=== PATIENT | male | born 1980 | race African-American/Black ===

== ENCOUNTER 2017-02-17 21:08 | Emergency (ER) | payer MEDICAID, OTHER ==
[2017-02-18] MEDS ORDERED: ONDANSETRON 4 MG TAB.RAPDIS PO ONE (01:14)
[2017-02-18] MEDS ORDERED: OXYCODONE-ACETAMINOPHEN 5-325 MG TABLET PO ONE (01:14)
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
[2017-02-18 02:47] VITALS: BP 129/74
== END 2017-02-18 02:48 | disposition home or self-care (01) ==
LOC: ER 21:08
DX: M54.2 Cervicalgia (principal); V49.40XA Driver injured in collision with unspecified motor vehicles in traffic accident, initial encounter; I10 Essential (primary) hypertension; J44.9 Chronic obstructive pulmonary disease, unspecified; F17.200 Nicotine dependence, unspecified, uncomplicated
CPT/HCPCS: 99283; 72050; S0119

== ENCOUNTER 2017-03-04 09:26 | Emergency (ER) | payer OTHER ==
[2017-03-04 09:47] VITALS: BP 151/88
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
== END 2017-03-04 10:25 | disposition home or self-care (01) ==
LOC: ER 09:26
DX: S16.1XXA Strain of muscle, fascia and tendon at neck level, initial encounter (principal); V49.40XA Driver injured in collision with unspecified motor vehicles in traffic accident, initial encounter; F17.200 Nicotine dependence, unspecified, uncomplicated; J44.9 Chronic obstructive pulmonary disease, unspecified; I10 Essential (primary) hypertension
CPT/HCPCS: 99283

== ENCOUNTER 2020-01-28 10:23 | Emergency (ER) | payer SELFPAY ==
[2020-01-28] MEDS ORDERED: TETRACAINE HCL 0.5% OPH SOLN 4 ML OD ONE (10:37)
--- NOTE | 2020-01-28 10:37 | ER Document Report ---
ED Medical Screen (RME) - General Chief Complaint: Foreign Body in Eye Stated Complaint: RIGHT EYE IRRITATION Time Seen by Provider: 01/28/20 10:35 Mode of Arrival: Ambulatory Information source: Patient Notes: 39-year-old male presented to ED for complaint of metal fragment in his right eye. He states he was cutting metal with a saw on when he got specks of metal in his eye. He states he has having a lot of pain in the right eye. He states he cannot see but he needs to get this treated. He is alert oriented respirations regular nonlabored speaking in full sentences. I have greeted and performed a rapid initial assessment of this patient. A comprehensive ED assessment and evaluation of the patient, analysis of test results and completion of medical decision making process will be conducted by an additional ED providers. TRAVEL OUTSIDE OF THE [place] IN LAST 30 DAYS: No - Related Data Allergies/Adverse Reactions: No Known Allergies Allergy (Verified 03/04/17 09:47) Past Medical History - Past Medical History Cardiac Medical History: Reports: Hx Hypertension Pulmonary Medical History: Reports: Hx COPD Renal/ Medical History: Denies: Hx Peritoneal Dialysis - Immunizations Hx Diphtheria, Pertussis, Tetanus Vaccination: Yes Physical Exam - Vital signs Vitals: Temp Pulse BP Pulse Ox 97.7 F 80 158/95 H 100 01/28/20 10:01/28/20 10:01/28/20 10:31 01/28/20 10:31 Course - Vital Signs Vital signs: Temp Pulse Resp BP Pulse Ox 97.7 F 80 158/95 H 100 01/28/20 10:31 01/28/20 10:31 01/28/20 10:31 01/28/20 10:31
[2020-01-28] MEDS ORDERED: ERYTHROMYCIN 0.5% OPH OINT 1 GM UNIT DOSE OS ONE (11:31)
[2020-01-28] MEDS ORDERED: KETOROLAC TROMETHAMINE 0.45% 4 DROP/0.4 ML DROPERETTE OS ONE (11:31)
[2020-01-28] MEDS ORDERED: HOMATROPINE HBR 5% OPH SOLN 5 ML OS ONE (11:32)
[2020-01-28 12:03] VITALS: BP 140/91
--- NOTE | 2020-01-28 12:09 | ER Document Report ---
Entered by PEG PEOPLES SCRIBE 01/28/20 1131 Acting as scribe for:CHELSEY MERRITT MD ED General - General Chief Complaint: Eye Injury Stated Complaint: RIGHT EYE IRRITATION Time Seen by Provider: 01/28/20 10:35 Mode of Arrival: Ambulatory Information source: Patient Notes: This 39-year-old male presents to the emergency department with right eye irritation that began three days ago. Patient [place] a metal fragment got under his protective glasses at 11:30 AM. Patient states that when he was taking off his protective glasses he felt the metal fragment fall into his right eye. Patient reports associated pain and redness of right eye. Patient said that he has rinsed his right eye with no relief. Patient denies fever and cough. TRAVEL OUTSIDE OF THE [place] IN LAST 30 DAYS: No - Related Data Allergies/Adverse Reactions: No Known Allergies Allergy (Verified 03/04/17 09:47) Past Medical History - General Information source: Patient - Social History Smoking Status: Current Every Day Smoker Cigarette use (# per day): Yes - 1 pack per day Chew tobacco use (# tins/day): No Frequency of alcohol use: None Drug Abuse: None Family History: Reviewed & Not Pertinent Patient has homicidal ideation: No - Past Medical History Cardiac Medical History: Reports: Hx Hypertension Pulmonary Medical History: Reports: Hx COPD Past Surgical History: Reports: Hx Inguinal Hernia - Left - Immunizations Hx Diphtheria, Pertussis, Tetanus Vaccination: Yes Review of Systems - Review of Systems Constitutional: See HPI. denies: Fever EENT: See HPI, Eye pain Cardiovascular: No symptoms reported Respiratory: See HPI. denies: Cough Gastrointestinal: No symptoms reported Genitourinary: No symptoms reported Male Genitourinary: No symptoms reported Musculoskeletal: No symptoms reported Skin: No symptoms reported Hematologic/Lymphatic: No symptoms reported Neurological/Psychological: No symptoms reported -: Yes All other systems reviewed and negative Physical Exam - Vital signs Vitals: Temp Pulse BP Pulse Ox 97.7 F 80 158/95 H 100 01/28/20 10:31 01/28/20 10:31 01/28/20 10:31 01/28/20 10:31 - Notes Notes: Physical Exam: General: Alert, appears well. HEENT: Atraumatic. PERRL. Extraocular movements intact. Oropharynx clear. Neck: Supple. Non-tender. Respiratory: No respiratory distress. Clear and equal breath sounds bilaterally. Cardiovascular: Regular rate and rhythm. Abdominal: Normal Inspection. Non-tender. No distension. Normal Bowel Sounds. Back: No gross abnormalities. Extremities: Moves all four extremities. Upper extremities: Normal inspection. Normal ROM. Lower extremities: Normal inspection. No edema. Normal ROM. Neurological: Normal cognition. AAOx4. Normal speech. Psychological: Normal affect. Normal Mood. Skin: Warm. Dry. Normal color. - General General appearance: Appears well In distress: None Notes: Visual acuity obtained by the nurse is right eye 20/20, left eye 20/15, both eyes 20/15. - HEENT Head: Normocephalic, Atraumatic Cornea: Embedded foreign body - The right cornea shows an embedded round metal foreign body in the medial aspect of the cornea. There is some injection of the sclera. There are no other irregularities of the corneal surface seen. Pupils: PERRL Visual acuity- Right eye: 20/20 Visual acuity- Left eye: 20/15 Visual acuity- Both eyes: 20/15 Corrective lenses worn: No Course - Re-evaluation Re-evalutation: 01/28/20 12:10 PROCEDURE: The right eye was anesthetized with tetracaine eyedrops. The metal corneal foreign body was removed with a 27-gauge needle. The metal broke apart and came out in multiple tiny pieces. There is a rust ring in the corneal tissue. Home atropine drops were placed in the right eye to facilitate dilatation. 2 Acular drops were placed in the right eye. Erythromycin ointment was placed in the right eye. - Vital Signs Vital signs: Temp Pulse Resp BP Pulse Ox 96.8 F L 60 18 140/91 H 97 01/28/20 11:58 01/28/20 11:58 01/28/20 11:58 01/28/20 11:58 01/28/20 11:58 Discharge - Discharge Clinical Impression: Corneal rust ring of right eye Corneal foreign body with residual material Qualifiers: Encounter type: initial encounter Laterality: right Qualified Code(s): T15.01XA - Foreign body in cornea, right eye, initial encounter Condition: Stable Disposition: HOME, SELF-CARE Additional Instructions: Corneal Foreign Body with Rust; You had a particle on the cornea of your eye. It's been removed, but your eye may be irritated until complete healing occurs. If a metal foreign body was imbedded in the eye, rust may develop in the cornea. If all the rust can't be removed at first, it can be removed at your follow-up visit. Following removal of a corneal foreign body, the usual treatment is to place antibiotics in the eye. If the eye is severely irritated, the pupil may be dilated to ease the pain. In addition, pain medication may be necessary. A follow-up visit is usually scheduled to assure healing. Do not drive or operate machinery until you have the full use of both your eyes. Healing of the area where the particle was embedded takes one to three days. If eye pain becomes severe, or if there is purulent drainage, eye swelling, or decreasing vision, call the doctor or return at once for re-evaluation. The metal was removed from your cornea today. There is rust in the cornea around where the metal was lodged. Put a small ribbon of the antibiotic ointment into the right eye every 4 hours. Put the ketorolac drops(one drop) into the right eye every 4 hours. Avoid wind and sunlight. Follow-up with an eye doctor on Thursday. Either railroad firer or entertainment lawyer. Prescriptions: Ketorolac Tromethamine [Acular] 1 drop OD Q4 #5 ml Forms: Return to Work I personally performed the services described in the documentation, reviewed and edited the documentation which was dictated to the scribe in my presence, and it accurately records my words and actions.
[2020-01-28] MEDS ORDERED: HYDROCODONE/ACETAMINOPHEN 5-325 MG (6 TAB/ER DISP) PO PRN (12:17)
== END 2020-01-28 12:41 | disposition home or self-care (01) ==
LOC: ER 10:23
DX: T15.01XA Foreign body in cornea, right eye, initial encounter (principal); W20.8XXA Other cause of strike by thrown, projected or falling object, initial encounter; Y93.89 Activity, other specified; Y92.139 Unspecified place military base as the place of occurrence of the external cause; Y99.0 Civilian activity done for income or pay; F17.210 Nicotine dependence, cigarettes, uncomplicated; I10 Essential (primary) hypertension; J44.9 Chronic obstructive pulmonary disease, unspecified
CPT/HCPCS: 99283; 65220; J3490